=== PATIENT | female | born 1985 | race Caucasian/White ===

== ENCOUNTER 2020-08-14 08:58 | Observation (INO) | payer BC, OTHER ==
[2020-08-14] MEDS: Lactated Ringers 1,000 ML IV SCH (09:45)
--- NOTE | 2020-08-14 10:41 | US ---
HISTORY: Vaginal bleeding in . TECHNIQUE: Transabdominal obstetric ultrasound. COMPARISON: None available. FINDINGS: Single intrauterine gestation. Breech position. cardiac activity is present with heart rate 143 beats per minute. Placenta is posterior. Placenta is unremarkable. Internal cervical os appears open with fluid in the cervical canal. The following biometric measurements were obtained. Biparietal diameter: 5.4 cm, 22 weeks 4 days. Head circumference: 20.4 cm, 22 weeks 4 days. Abdominal circumference: 16.9 cm, 22 weeks 0 days. Femur length: 3.8 cm, 22 weeks 1 day. Estimated gestational age by ultrasound is 22 weeks 3 days. Estimated weight is 469 g corresponding to the 31st percentile. IMPRESSION: Single live intrauterine gestation with estimated gestational age 22 weeks 3 days. Breech position. Internal cervical os appears open with fluid in the cervical canal. Dictated by Emiliano Triplett MD @ Aug 14 2020 10:26AM Signed by Dr. Emiliano Triplett @ Aug 14 2020 10:39AM
--- NOTE | 2020-08-14 10:47 | PCM.LDHP ---
L&D History of Present Illness - General Date of Service: 08/14/20 Admit Problem/Dx: Patient Status Order with Admit Dx/Problem 08/14/20 09:26 Patient Status [ADT] Routine Admission Diagnosis/Problem Admission Diagnosis/Problem 08/14/20 10:42 Nestor is a 35 yo 020 at 22+1 weeks gestation (JOE(LMP) 12/17/2020) that presents via ambulance today for heavy vaginal bleeding that started today at 0800. Patient reports +FM. Denies pain, contractions, or LOF. AB neg, Ab screen neg, RI, GBS positive bacteriuria. RhoGam administered 05/27/2020 for vaginal bleeding in early . H/O: CHTN well managed with PO medications, GBS pos bacteriuria, maternal Rh neg, Vitamin D deficiency, h/o re current miscarriage. NDKA. Meds: Progesterone 100 mg PO BID, aspirin 81 mg PO daily, Forte, labetolol 400 mg PO BID. Anatomy US completed 07/29/2020: 20+7 weeks gestation, posterior placenta, no previa, grade 1, TVUS noted CL 3.4cm, 3VC, 4CH, EFW 320 grams (0 lbs and 11 oz), 48th%, normal anatomy. 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 General: Reports: No Symptoms HEENT: Reports: No Symptoms Pulmonary: Reports: No Symptoms Cardiovascular: Reports: No Symptoms Gastrointestinal: Reports: No Symptoms Genitourinary: Reports: No Symptoms Musculoskeletal: Reports: No Symptoms Skin: Reports: No Symptoms Psychiatric: Reports: No Symptoms Neurological: Reports: No Symptoms Hematologic/Lymphatic: Reports: No Symptoms Immunologic: Reports: No Symptoms L&D Exam - Exam Exam: See Below - Vital Signs Vital Signs: VSS, afebrile. See flowsheet. - OB Specific Fundal Height In cm: 21 (U+1) Contraction Intensity: Irritability Movement: Active Heart Tones: Present Heart Tones per Min: 155 Heart Rate (FHR) Variability: Minimal (0-5 bpm) Presentation: Breech (via TAUS) - Exam General: Alert, Oriented, Cooperative, Mild Distress HEENT: Conjunctiva Clear, EACs Clear, Hearing Intact, Mucosa Moist & [place], PERRLA Neck: Supple, Trachea Midline Lungs: Clear to Auscultation, Normal Respiratory Effort Cardiovascular: Regular Rate, Regular Rhythm GI/Abdominal Exam: Normal Bowel Sounds, Soft, Non-Tender, No Organomegaly, No Distention Rectal Exam: Deferred Genitourinary: Cervical dilitation (1-2 cm via sterile speculum exam performed by Dr. Holt at bedside, no bulging membranes noted.), Enlarged uterus (Gravid uterus, U+1), Vaginal bleeding (Large old blood noted dried to bilateral legs, cleaned. No active bleeding at this time.) Back Exam: Normal Inspection, Full Range of Motion Extremities: Normal Inspection, Normal Range of Motion, Non-Tender, No Pedal Edema, Normal Capillary Refill Skin: Warm, Dry, Intact Neurological: Cranial Nerves Intact, Reflexes Equal Bilateral Psychiatric: Alert, Normal Affect, Anxious - Patient Data Lab Results Last 24 hrs: Laboratory Results - last 24 hr 08/14/20 Range/Units 09:45 WBC 8.05 (4.0-11.0) K/uL RBC 4.03 L (4.30-5.90) M/uL Hgb 10.3 L (12.0-16.0) g/dL Hct 32.2 L (36.0-46.0) % MCV 79.9 L (80.0-98.0) fL MCH 25.6 L (27.0-32.0) pg MCHC 32.0 (31.0-37.0) g/dL RDW Std Deviation 37.1 (28.0-62.0) fl RDW Coeff of Guera 13 (11.0-15.0) % Plt Count 174 (150-400) K/uL MPV 12.40 H (7.40-12.00) fL Neut % (Auto) 77.2 (48.0-80.0) % Lymph % (Auto) 12.9 L (16.0-40.0) % Coleman % (Auto) 9.3 (0.0-15.0) % Eos % (Auto) 0.5 (0.0-7.0) % Baso % (Auto) 0.1 (0.0-1.5) % Neut # (Auto) 6.2 H (1.4-5.7) K/uL Lymph # (Auto) 1.0 (0.6-2.4) K/uL Coleman # (Auto) 0.8 (0.0-0.8) K/uL Eos # (Auto) 0.0 (0.0-0.7) K/uL Baso # (Auto) 0.0 (0.0-0.1) K/uL Nucleated RBC % 0.0 /100WBC Nucleated RBCs # 0 K/uL Result Diagrams: 08/14/20 09:45 - Problem List (1) Vaginal bleeding during SNOMED Code(s): 97220501984946362 ICD Code: O46.90 - ANTEPARTUM HEMORRHAGE, UNSPECIFIED, UNSPECIFIED TRIMESTER Status: Acute Priority: High Current Visit: Yes (2) Rh negative status during SNOMED Code(s): 778769333 ICD Code: O26.899 - OTH RELATED CONDITIONS, UNSPECIFIED TRIMESTER; Z67.91 - UNSPECIFIED BLOOD TYPE, RH NEGATIVE Status: Acute Priority: High Current Visit: Yes (3) GBS bacteriuria SNOMED Code(s): 48364055 ICD Code: R82.71 - BACTERIURIA Status: Acute Priority: High Current Visit: Yes (4) Chronic hypertension affecting SNOMED Code(s): 56095030 ICD Code: O10.919 - UNSP PRE-EXISTING HTN COMP , UNSP TRIMESTER Status: Acute Priority: High Current Visit: Yes (5) 22 weeks gestation of SNOMED Code(s): 05864121 ICD Code: Z3A.22 - 22 WEEKS GESTATION OF Status: Acute Priority: High Current Visit: Yes Problem List Initiated/Reviewed/Updated: Yes Orders Last 24hrs: Active Orders 24 hr Category Date Time Status Patient Status [ADT] Routine ADT 08/14/20 09:26 Active Non Stress Test [RC] PER UNIT ROUTINE Care 08/14/20 09:26 Active Up ad Alissa [RC] ASDIRECTED Care 08/14/20 09:26 Active Vaginal Exam [RC] Click to Edit Care 08/14/20 09:26 Active Vital Signs [RC] PER UNIT ROUTINE Care 08/14/20 09:26 Active CORONAVIRUS COVID-19 FRANCHESKA [MOLEC] Stat Lab 08/14/20 09:40 Received Resuscitation Status Routine Resus Stat 08/14/20 09:26 Ordered Assessment/Plan Comment:: Admit into inpatient observation for albaro vaginal bleeding at 22+1 weeks gestation (JOE(LMP) 12/17/2020) that presents via ambulance today that started today at 0800. AB neg, Ab screen neg, RI, GBS positive bacteriuria. TAUS completed at bedside today: 22+3 weeks gestation, breech, FHR 143, placenta posterior, no previa, unremarkable and no abruption or abnormalities noted at this time. NEHA 12.71, SDP 5.4. Internal cervical os appears open with fluid in cervical canal, CL not collected, footling breech appears to be present into cervical canal via TAUS. EFW 469 grams, 31st%ile. Speculum exam and gentle SVE completed by Dr. Holt at bedside: cervix appears 1-2 cm in dilation, thick, no membranes protruding from external os, parts not palpated; no albaro bleeding or LOF noted at that time. Collect Amnisure now, results pending. RhoGam administered 05/27/2020 for vaginal bleeding in early ; plan for repeat RhoGam administration in am with lab collection at that time. CHTN well managed with PO medications, plan to continue labetolol 400 mg BID. GBS pos b acteriuria, : plan for antibiotic prophylaxis today per Dr. Holt. Plan to reassess CBC, CMP, RhIg with subsequent RhoGam injection in am. Plan to repeat TAUS in am with TVUS for cervical length in am given patient continue to have ceased vaginal bleeding and no LOF. Will observe overnight and reassess situation tomorrow given patient remains stable. Bedrest with bed-florentino voiding, do not ambulate. FHTs q 12 hrs or as indicated. Continuous TOCO. See new orders. Dr. Holt agreeable with POC.
[2020-08-14] MEDS ORDERED: Ampicillin 2 GM in Sodium Chloride 0.9% 100 ML IV ONE (11:49)
[2020-08-14 11:51] LABS: BLOOD UREA NITROGEN,BUN 5 mg/dL (7.0-18.0); CARBON DIOXIDE,CO2 22.8 mmol/L (21.0-32.0); CHLORIDE,CL 104 mmol/L (98-107); GLUCOSE RANDOM 76 mg/dL (74-106); SODIUM,NA 138 mmol/L (136-145)
[2020-08-14] MEDS ORDERED: Sodium Chloride 0.9% 100 ML ONE (12:29)
[2020-08-14] MEDS: Labetalol 100 MG Tab PO SCH ×2 (12:34→20:30)
[2020-08-14] MEDS: Prenatal Multivitamin with Calcium/Folic Acid/Iron Tab PO SCH (12:37)
[2020-08-14] MEDS: Ampicillin 1 GM in Sodium Chloride 0.9% 50 ML IV SCH ×2 (16:28→20:31)
[2020-08-15] MEDS: Ampicillin 1 GM in Sodium Chloride 0.9% 50 ML IV SCH ×5 (00:20→21:30)
[2020-08-15 05:55] LABS: BLOOD UREA NITROGEN,BUN 6 mg/dL (7.0-18.0); CARBON DIOXIDE,CO2 21.4 mmol/L (21.0-32.0); CHLORIDE,CL 104 mmol/L (98-107); GLUCOSE RANDOM 74 mg/dL (74-106); POTASSIUM,K 3.7 mmol/L (3.5-5.1); SODIUM,NA 138 mmol/L (136-145)
--- NOTE | 2020-08-15 07:12 | PCM.PNLD ---
Labor Progress Note - VS & Meds Vital Signs: Last Vital Signs Temp Pulse 84 08/14/20 20:30 Resp BP 138/84 08/14/20 20:30 Pulse Ox Active Medications: Current Medications Ampicillin Sodium 1 gm/ Sodium (Chloride) 50 mls @ 100 mls/hr IV Q4H [facility] Last Admin: 08/15/20 04:15 Dose: 100 mls/hr Documented by: Lactated Ringer's (Ringers, Lactated) 1,000 mls @ 150 mls/hr IV ASDIRECTED [facility] Last Admin: 08/14/20 09:45 Dose: 150 mls/hr Documented by: Labetalol HCl (Labetalol 100 Mg Tab) 400 mg PO BID [facility] Last Admin: 08/14/20 20:30 Dose: 400 mg Documented by: Prenat Multivit/Pleak/Iron/Folic Ac ( Multivitamin With Calcium/Folic Acid/Iron Tab) 1 each PO DAILY [facility] Last Admin: 08/14/20 12:37 Dose: 1 each Documented by: Discontinued Medications Ampicillin Sodium 2 gm/ Sodium (Chloride) 100 mls @ 200 mls/hr IV ONETIME ONE Stop: 08/14/20 12:18 Last Admin: 08/14/20 12:38 Dose: 200 mls/hr Documented by: Sodium Chloride (Normal Saline) Confirm Administered Dose 100 mls @ as directed .ROUTE .STK-MED ONE Stop: 08/14/20 12:30 - Uterine Contractions Uterine Monitoring Mode: External [place] Contraction Frequency (min): Rare Contraction Duration (sec): 40-60 Contraction Intensity: Irritability Uterine Resting Tone: Soft - Monitoring Monitor Mode: External Ultrasound Heart Rate (FHR) Baseline: 150 (FHTs collected q shift.) Heart Rate (FHR) Variability: Minimal (0-5 bpm) - Labor Progress (Free Text) Labor Progress: Nestor is a 35 yo 020 at 22+2 weeks gestation (JOE(LMP) 12/17/2020) that presents via ambulance 1 day ago for heavy vaginal bleeding that started ~ 24 hrs ago. Patient reports +FM. Denies pain, contractions, persistent vaginal bleeding, or LOF. AB neg, Ab screen neg, RI, GBS positive bacteriuria. TAUS completed at bedside 08/14/2020: 22+3 weeks gestation, breech, FHR 143, placenta posterior, no previa, unremarkable and no abruption or abnormalities noted at this time. NEHA 12.71, SDP 5.4. Internal cervical os appears open with fluid in cervical canal, CL not collected, footling breech appears to be present into cervical canal via TAUS. EFW 469 grams, 31st%ile. Speculum exam and gentle SVE completed by Dr. Holt at bedside 08/15/2020: cervix appears 1-2 cm in dilation, thick, no membranes protruding from external os, parts not palpated; no albaro bleeding or LOF noted at that time. RhoGam administered 05/27/2020 for vaginal bleeding in early ; repeat RhoGam administration pending. GBS pos bacteriuria, Amnisure positive 08/14/2020, PPROM: continue ampicillin prophylaxis administered q 4 hrs since 1 day ago. CHTN well managed with PO medications, plan to continue labetolol 400 mg BID. Plan to repeat TAUS in am with TVUS for cervical length in am given patient continue to have ceased vaginal bleeding and no LOF. Will observe overnight and reassess situation today given patient remains stable. Bedrest with bed-florentino voiding, do not ambulate. FHTs q 12 hrs or as indicated. Continuous TOCO. See new orders. Dr. Holt agreeable with POC, and will present today at bedside to assess patient.
--- NOTE | 2020-08-15 08:18 | CONS ---
DATE OF CONSULTATION: 08/14/2020 DATE OF : 1985 PRIMARY CARE PHYSICIAN: None PCP HISTORY OF PRESENT ILLNESS: Ms. Baez is a 35-year-old patient. She is para 0-0-3-0. She had 3 previous miscarriages, all of them under 12 weeks. She started her care with us in this when she was 9 to 10 weeks. The patient has chronic hypertension. She is on labetalol and she is a high-risk . Other than the poor obstetric history and her blood pressure, there is no other risk factor. The patient had anatomy ultrasound in the office at 21 weeks, at that time it shows that the anatomy is normal. The placenta is posterior. No previa. Cervical length is 4.5 cm. The patient came to Labor and Delivery today, is complaining that at 8 o'clock this morning, she started sudden onset of vaginal bleeding with blood running on her leg. There is mild cramping, but no actual contraction. At the time of arrival to the Labor and Delivery, she stopped bleeding. There was no active bleeding. Her vital signs were stable. heart rate is normal in the 135 to 140. The abdomen is soft. There was no palpable contraction. The patient had repeat ultrasound, which confirmed that she is 22 weeks plus 3. The placenta is posterior. There is no evidence of abruption. She is breech presentation. The internal os appears open with fluid funneling in the cervical canal. Otherwise, the ultrasound and the measurement is unremarkable. Speculum examination shows no active bleeding, and visually the external cervical os may be open to 1 cm and is still thick. There is no bulging bag of fluid. Gentle digital examination confirmed that the patient maybe 1 cm. The cervix sticks and there is no palpable amniotic membrane in the cervical canal. PLAN: My plan on this patient and I discussed it with her and her family in detail. I am admitting her to the hospital under observation. We are planning to repeat her ultrasound tomorrow to confirm there is no abruption in the placenta. The ultrasound shows that estimated weight is 409 g. I also explained to the patient and her family that the survivability of the fetus at this gestational age with this weight is very, very precarious and it is not good. However, our plan is to place the patient on observation, repeat her ultrasound, repeat her hematocrit, and do an AmniSure. If it is all negative and she stops bleeding, and on tomorrow's ultrasound, there is no abruption, there is the possibility of doing Chin cerclage on this patient most likely is on Saturday. I explained this to the patient in detail. EDY GUADALUPE /[id number]
[2020-08-15] MEDS: Prenatal Multivitamin with Calcium/Folic Acid/Iron Tab PO SCH (09:02)
[2020-08-15] MEDS: Labetalol 100 MG Tab PO SCH ×2 (09:03→21:00)
--- NOTE | 2020-08-15 09:58 | US ---
CLINICAL HISTORY: Vaginal bleeding recheck Comparison ultrasound 08/14/2020 TECHNIQUE: Real time eng scale imaging of the fetus was performed as well as color Doppler and spectral Doppler analysis of the umbilical artery. FINDINGS: Single live intrauterine gestation. presentation is breech. Placenta posterior. No perigestational hemorrhage seen. Positive cardiac activity measures 143 beats per minute. NEHA measures 11.5 cm. Previous NEHA measured 12.7 cm. Cervix is open with fluid IMPRESSION: 1. Fairly similar findings again demonstrating single live intrauterine gestation in breech presentation. Internal os open with fluid in the cervical canal. NEHA is unchanged measuring 11.5 cm. Dictated by Martha Cornell MD @ Aug 15 2020 9:53AM Signed by Dr. Martha Cornell @ Aug 15 2020 9:57AM
--- NOTE | 2020-08-15 13:17 | PCM.PN ---
- General Info Date of Service: 08/15/20 Functional Status: Reports: Pain Controlled - Review of Systems General: Reports: No Symptoms HEENT: Reports: No Symptoms Pulmonary: Reports: No Symptoms Cardiovascular: Reports: No Symptoms Gastrointestinal: Reports: No Symptoms Genitourinary: Reports: No Symptoms Musculoskeletal: Reports: No Symptoms Skin: Reports: No Symptoms Neurological: Reports: No Symptoms Psychiatric: Reports: No Symptoms - Patient Data Vitals - Most Recent: Last Vital Signs Temp Pulse 88 08/15/20 09:03 Resp BP 139/80 08/15/20 09:03 Pulse Ox Weight - Most Recent: 86.183 kg I&O - Last 24 Hours: Intake & Output 08/14/20 08/15/20 08/15/20 22:59 06:59 14:59 Output Total 800 400 300 Balance -800 -400 -300 Lab Results Last 24 Hours: Laboratory Results - last 24 hr 08/14/20 08/15/20 08/15/20 Range/Units 09:45 05:25 05:25 WBC 7.65 (4.0-11.0) K/uL RBC 3.73 L (4.30-5.90) M/uL Hgb 9.6 L (12.0-16.0) g/dL Hct 29.6 L (36.0-46.0) % MCV 79.4 L (80.0-98.0) fL MCH 25.7 L (27.0-32.0) pg MCHC 32.4 (31.0-37.0) g/dL RDW Std Deviation 36.9 (28.0-62.0) fl RDW Coeff of Guera 13 (11.0-15.0) % Plt Count 165 (150-400) K/uL Nucleated RBC % 0.0 /100WBC Nucleated RBCs # 0 K/uL Sodium 138 (136-145) mmol/L Potassium 3.7 (3.5-5.1) mmol/L Chloride 104 (98-107) mmol/L Carbon Dioxide 21.4 (21.0-32.0) mmol/L BUN 6 L (7.0-18.0) mg/dL Creatinine 0.6 (0.6-1.0) mg/dL Est Cr Clr Drug Dosing 179.75 mL/min Estimated GFR (MDRD) > 60.0 ml/min Glucose 74 (74-106) mg/dL Calcium 8.8 (8.5-10.1) mg/dL Total Bilirubin 0.4 (0.2-1.0) mg/dL AST 16 (15-37) IU/L ALT 20 (14-63) IU/L Alkaline Phosphatase 67 (46-116) U/L Total Protein 6.4 (6.4-8.2) g/dL Albumin 2.8 L (3.4-5.0) g/dL Globulin 3.6 (2.6-4.0) g/dL Albumin/Globulin Ratio 0.8 L (0.9-1.6) Blood Type AB NEGATIVE Antibody Screen NEGATIVE Screen NEGATIVE (NEGATIVE) RhIG Candidate? YES Rhogam Indicated YES Crossmatch See Detail Med Orders - Current: Current Medications Ampicillin Sodium 1 gm/ Sodium (Chloride) 50 mls @ 100 mls/hr IV Q4H [facility] Last Admin: 08/15/20 12:39 Dose: 100 mls/hr Documented by: Lactated Ringer's (Ringers, Lactated) 1,000 mls @ 150 mls/hr IV ASDIRECTED [facility] Last Admin: 08/14/20 09:45 Dose: 150 mls/hr Documented by: Labetalol HCl (Labetalol 100 Mg Tab) 400 mg PO BID [facility] Last Admin: 08/15/20 09:03 Dose: 400 mg Documented by: Prenat Multivit/Tape Stringer/Iron/Folic Ac ( Multivitamin With Calcium/Folic Acid/Iron Tab) 1 each PO DAILY [facility] Last Admin: 08/15/20 09:02 Dose: 1 each Documented by: Discontinued Medications Ampicillin Sodium 2 gm/ Sodium (Chloride) 100 mls @ 200 mls/hr IV ONETIME ONE Stop: 08/14/20 12:18 Last Admin: 08/14/20 12:38 Dose: 200 mls/hr Documented by: Sodium Chloride (Normal Saline) Confirm Administered Dose 100 mls @ as directed .ROUTE .STK-MED ONE Stop: 08/14/20 12:30 - Exam General: Alert, Oriented HEENT: Pupils Equal, Pupils Reactive, EOMI, Mucous Membr. Moist/[place] Neck: Supple Lungs: Clear to Auscultation, Normal Respiratory Effort Cardiovascular: Regular Rate, Regular Rhythm GI/Abdominal Exam: Normal Bowel Sounds, Soft, Non-Tender, No Organomegaly, No Distention, No Abnormal Bruit, No Mass, Pelvis Stable (Female) Exam: Normal External Exam, Normal Speculum Exam, Normal Bimanual Exam Back Exam: Normal Inspection, Full Range of Motion Extremities: Normal Inspection, Normal Range of Motion, Non-Tender, No Pedal Ed milka, Normal Capillary Refill Skin: Warm, Dry, Intact Wound/Incisions: Healing Well Neurological: No New Focal Deficit Psy/Mental Status: Alert, Normal Affect, Normal Mood - Patient Data Lab Results Last 24 hrs: Laboratory Results - last 24 hr 08/14/20 08/15/20 08/15/20 Range/Units 09:45 05:25 05:25 WBC 7.65 (4.0-11.0) K/uL RBC 3.73 L (4.30-5.90) M/uL Hgb 9.6 L (12.0-16.0) g/dL Hct 29.6 L (36.0-46.0) % MCV 79.4 L (80.0-98.0) fL MCH 25.7 L (27.0-32.0) pg MCHC 32.4 (31.0-37.0) g/dL RDW Std Deviation 36.9 (28.0-62.0) fl RDW Coeff of Guera 13 (11.0-15.0) % Plt Count 165 (150-400) K/uL Nucleated RBC % 0.0 /100WBC Nucleated RBCs # 0 K/uL Sodium 138 (136-145) mmol/L Potassium 3.7 (3.5-5.1) mmol/L Chloride 104 (98-107) mmol/L Carbon Dioxide 21.4 (21.0-32.0) mmol/L BUN 6 L (7.0-18.0) mg/dL Creatinine 0.6 (0.6-1.0) mg/dL Est Cr Clr Drug Dosing 179.75 mL/min Estimated GFR (MDRD) > 60.0 ml/min Glucose 74 (74-106) mg/dL Calcium 8.8 (8.5-10.1) mg/dL Total Bilirubin 0.4 (0.2-1.0) mg/dL AST 16 (15-37) IU/L ALT 20 (14-63) IU/L Alkaline Phosphatase 67 (46-116) U/L Total Protein 6.4 (6.4-8.2) g/dL Albumin 2.8 L (3.4-5.0) g/dL Globulin 3.6 (2.6-4.0) g/dL Albumin/Globulin Ratio 0.8 L (0.9-1.6) Blood Type AB NEGATIVE Antibody Screen NEGATIVE Screen NEGATIVE (NEGATIVE) RhIG Candidate? YES Rhogam Indicated YES Crossmatch See Detail Result Diagrams: 08/15/20 05:25 08/15/20 05:25 Sepsis Event Note - Evaluation Sepsis Screening Result: No Definite Risk - Focused Exam Vital Signs: Vital Signs Pulse BP 08/15/20 09:03 88 139/80 - Problem List Review Problem List Initiated/Reviewed/Updated: Yes - My Orders Last 24 Hours: My Active Orders 08/14/20 14:23 SCD [Sequential Compression Device] [OM.PC] Routine 08/14/20 14:24 Antiembolic Devices [RC] PER UNIT ROUTINE 08/14/20 15:45 Lactated Ringers [Ringers, Lactated] 1,000 ml IV ASDIRECTED 08/16/20 06:00 CBC WITH AUTO DIFF [HEME] Routine 08/16/20 08:00 OB Transvaginal [US] Routine - Assessment Assessment:: The patient stop having contraction and cramping she stop bleeding OB ultrasound today is shows that the amniotic fluid index is to same and there is stool funneling of the cervical canal with amniotic fluid in it but did not progress beyond what start ultrasound from yesterday by ultrasound the patient is still have an intact amniotic sac it is most likely that AmniSure positive yesterday is due to contamination with blood. I am planning to repeat her ultrasound tomorrow for amniotic fluid index and to make sure definitely that the patient does not have any abruption I am also doing a vaginal probe more to measure her cervical length. My plan if there is no change in her status then I am planning to do a Chin cerclage on the patient tomorrow at noon. I discussed the finding today and my plan with the patient and her and explained to them that in detail what the Chin cerclage and there is the possibility of rupturing her membranes during the process. Also explained to the patient and her is if she'll go home she is will be on complete bedrest. I also explained to them that we will are going to assess the on weekly basis we can by 4-5 weeks with a cerclage disease wouldn't improve the odds for the survival for the fetus. The patient and her agreed to this plan. - Plan Plan:: Admit into inpatient observation for albaro vaginal bleeding at 22+1 weeks gestation (JOE(LMP) 12/17/2020) that presents via ambulance today that started today at 0800. AB neg, Ab screen neg, RI, GBS positive bacteriuria. TAUS completed at bedside today: 22+3 weeks gestation, breech, FHR 143, placenta posterior, no previa, unremarkable and no abruption or abnormalities noted at this time. NEHA 12.71, SDP 5.4. Internal cervical os appears open with fluid in cervical canal, CL not collected, footling breech appears to be present into cervical canal via TAUS. EFW 469 grams, 31st%ile. Speculum exam and gentle SVE completed by Dr. Holt at bedside: cervix appears 1-2 cm in dilation, thick, no membranes protruding from external os, parts not palpated; no albaro bleeding or LOF noted at that time. Collect Amnisure now, results pending. RhoGam administered 05/27/2020 for vaginal bleeding in early ; plan for repeat RhoGam administration in am with lab collection at that time. CHTN well managed with PO medications, plan to continue labetolol 400 mg BID. GBS pos bacteriuria, : plan for antibiotic prophylaxis today per Dr. Holt. Plan to reassess CBC, CMP, RhIg with subsequent RhoGam injection in am. Plan to repeat TAUS in am with TVUS for cervical length in am given patient continue to have ceased vaginal bleeding and no LOF. Will observe overnight and reassess situation tomorrow given patient remains stable. Bedrest with bed-florentino voiding, do not ambulate. FHTs q 12 hrs or as indicated. Continuous TOCO. See new orders. Dr. Holt agreeable with POC.
[2020-08-16] MEDS: Ampicillin 1 GM in Sodium Chloride 0.9% 50 ML IV SCH ×3 (00:23→11:42)
[2020-08-16] MEDS ORDERED: Ampicillin 1 GM Vial ONE ×5 (04:32→20:04)
[2020-08-16] MEDS ORDERED: Sodium Chloride 0.9% 50 ML ONE ×3 (08:03→16:03)
[2020-08-16] MEDS ORDERED: Labetalol 100 MG Tab ONE ×2 (09:08→20:05)
--- NOTE | 2020-08-16 09:17 | US ---
INDICATION: Second trimester bleeding. TECHNIQUE: 2D eng scale imaging of the fetus was performed. FINDINGS: Sonographic imaging demonstrates a single living intrauterine gestation. Fetus demonstrates a regular cardiac rate of 147 beats per minute. Fetus has a breech presentation. The placenta lies posteriorly without evidence of placenta previa or abruption. Amniotic fluid volume appears normal with a 4 quadrant fluid volume index measurement of 12.1 cm. The cervix is closed and measures 1.8 cm in length. IMPRESSION: No evidence of abruption within the posterior placenta. The amniotic fluid volume remains normal. Cervix appears shortened measuring 1.8 cm in length. Dictated by Jose Chen MD @ Aug 16 2020 9:01AM Signed by Dr. Jose Chen @ Aug 16 2020 9:14AM
--- NOTE | 2020-08-16 09:37 | PCM.PREANE ---
Preanesthetic Assessment - Anesthesia/Transfusion/Family Hx Anesthesia History: No Prior Anesthesia Family History of Anesthesia Reaction: No Transfusion History: No Prior Transfusion(s) - Review of Systems General: No Symptoms Pulmonary: No Symptoms Cardiovascular: Other (Hx Chronic Hypertension) Gastrointestinal: No Symptoms Neurological: No Symptoms Other: Reports: None - Physical Assessment NPO Status Date: 08/16/20 NPO Status Time: 00:05 Vital Signs: Last Vital Signs Temp Pulse 84 08/16/20 09:11 Resp BP 135/85 08/16/20 09:11 Pulse Ox Height: 4.19 m Weight: 86.183 kg ASA Class: 2 Mental Status: Alert & Oriented x3 Dentition: Reports: Normal Dentition ROM/Head Extension: Full - Lab Values: Laboratory Last Values WBC 6.90 K/uL (4.0-11.0) 08/16/20 06:08 RBC 3.83 M/uL (4.30-5.90) L 08/16/20 06:08 Hgb 9.9 g/dL (12.0-16.0) L 08/16/20 06:08 Hct 30.4 % (36.0-46.0) L 08/16/20 06:08 MCV 79.4 fL (80.0-98.0) L 08/16/20 06:08 MCH 25.8 pg (27.0-32.0) L 08/16/20 06:08 MCHC 32.6 g/dL (31.0-37.0) 08/16/20 06:08 RDW Std Deviation 36.5 fl (28.0-62.0) 08/16/20 06:08 RDW Coeff of Guera 13 % (11.0-15.0) 08/16/20 06:08 Plt Count 165 K/uL (150-400) 08/16/20 06:08 MPV 12.30 fL (7.40-12.00) H 08/16/20 06:08 Neut % (Auto) 73.7 % (48.0-80.0) 08/16/20 06:08 Lymph % (Auto) 16.7 % (16.0-40.0) 08/16/20 06:08 Johnson % (Auto) 8.8 % (0.0-15.0) 08/16/20 06:08 Eos % (Auto) 0.7 % (0.0-7.0) 08/16/20 06:08 Baso % (Auto) 0.1 % (0.0-1.5) 08/16/20 06:08 Neut # (Auto) 5.1 K/uL (1.4-5.7) 08/16/20 06:08 Lymph # (Auto) 1.2 K/uL (0.6-2.4) 08/16/20 06:08 Johnson # (Auto) 0.6 K/uL (0.0-0.8) 08/16/20 06:08 Eos # (Auto) 0.1 K/uL (0.0-0.7) 08/16/20 06:08 Baso # (Auto) 0.0 K/uL (0.0-0.1) 08/16/20 06:08 Nucleated RBC % 0.0 /100WBC 08/16/20 06:08 Nucleated RBCs # 0 K/uL 08/16/20 06:08 Sodium 138 mmol/L (136-145) 08/15/20 05:25 Potassium 3.7 mmol/L (3.5-5.1) 08/15/20 05:25 Chloride 104 mmol/L (98-107) 08/15/20 05:25 Carbon Dioxide 21.4 mmol/L (21.0-32.0) 08/15/20 05:25 BUN 6 mg/dL (7.0-18.0) L 08/15/20 05:25 Creatinine 0.6 mg/dL (0.6-1.0) 08/15/20 05:25 Est Cr Clr Drug Dosing 179.75 mL/min 08/15/20 05:25 Estimated GFR (MDRD) > 60.0 ml/min 08/15/20 05:25 Glucose 74 mg/dL (74-106) 08/15/20 05:25 Calcium 8.8 mg/dL (8.5-10.1) 08/15/20 05:25 Total Bilirubin 0.4 mg/dL (0.2-1.0) 08/15/20 05:25 AST 16 IU/L (15-37) 08/15/20 05:25 ALT 20 IU/L (14-63) 08/15/20 05:25 Alkaline Phosphatase 67 U/L (46-116) 08/15/20 05:25 Total Protein 6.4 g/dL (6.4-8.2) 08/15/20 05:25 Albumin 2.8 g/dL (3.4-5.0) L 08/15/20 05:25 Globulin 3.6 g/dL (2.6-4.0) 08/15/20 05:25 Albumin/Globulin Ratio 0.8 (0.9-1.6) L 08/15/20 05:25 Membrane Rupture POSITIVE 08/14/20 10:57 SARS-CoV-2 RNA (FRANCHESKA) NEGATIVE (NEGATIVE) 08/14/20 09:40 Blood Type AB NEGATIVE 08/14/20 09:45 Antibody Screen NEGATIVE 08/14/20 09:45 Screen NEGATIVE (NEGATIVE) 08/14/20 09:45 RhIG Candidate? YES 08/14/20 09:45 Rhogam Indicated YES 08/14/20 09:45 Crossmatch See Detail 08/14/20 09:45 - Allergies Allergies/Adverse Reactions: Allergies Allergy/AdvReac Type Severity Reaction Status Date / Time No Known Allergies Allergy Verified 08/14/20 12:00 - Anesthesia Plan Beta Shaggy: Labetalol Med Last Dose Date: 08/16/20 Med Last Dose Time: 08:00 - Acknowledgements Anesthesia Type Planned: Spinal Pt an Appropriate Candidate for the Planned Anesthesia: Yes Alternatives and Risks of Anesthesia Discussed w Pt/Guardian: Yes Pt/Guardian Understands and Agrees with Anesthesia Plan: Yes PreAnesthesia Questionnaire - Past Health History Medical/Surgical History: Denies Medical/Surgical History Cardiovascular History: Reports: Hypertension 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 Hematologic History: Reports: Other (See Below) - Past Surgical History Cardiovascular Surgical History: Reports: None Respiratory Surgical History: Reports: None - SUBSTANCE USE Tobacco Use Status *Q: Never Tobacco User Tobacco Use Within Last Twelve Months: No Second Hand Smoke Exposure: No Recreational Drug Use History: No - HOME MEDS Home Medications: Home Meds Aspirin [Izaiah Chewable] 81 mg PO DAILY 08/14/20 [History] Labetalol [Normodyne] 400 mg PO BID 08/14/20 [History] Vit #76/Iron,Carb/Fa [Pnv 29-1 Tablet] 1 each PO DAILY 08/14/20 [History] - CURRENT (IN HOUSE) MEDS Current Meds: Current Medications Ampicillin Sodium 1 gm/ Sodium (Chloride) 50 mls @ 100 mls/hr IV Q4H [facility] Last Admin: 08/16/20 04:48 Dose: 100 mls/hr Documented by: Lactated Ringer's (Ringers, Lactated) 1,000 mls @ 150 mls/hr IV ASDIRECTED [facility] Last Admin: 08/14/20 09:45 Dose: 150 mls/hr Documented by: Labetalol HCl (Labetalol 100 Mg Tab) 400 mg PO BID [facility] Last Admin: 08/15/20 21:00 Dose: 400 mg Documented by: Prenat Multivit/[place]/Iron/Folic Ac ( Multivitamin With Calcium/Folic Acid/Iron Tab) 1 each PO DAILY [facility] Last Admin: 08/15/20 09:02 Dose: 1 each Documented by: Discontinued Medications Ampicillin Sodium (Ampicillin 1 Gm Vial) Confirm Administered Dose 1 gm .ROUTE .STK-MED ONE Stop: 08/16/20 04:33 Ampicillin Sodium (Ampicillin 1 Gm Vial) Confirm Administered Dose 1 gm .ROUTE .STK-MED ONE Stop: 08/16/20 08:02 Last Admin: 08/16/20 08:24 Dose: 1 gm Documented by: Ampicillin Sodium 2 gm/ Sodium (Chloride) 100 mls @ 200 mls/hr IV ONETIME ONE Stop: 08/14/20 12:18 Last Admin: 08/14/20 12:38 Dose: 200 mls/hr Documented by: Sodium Chloride (Normal Saline) Confirm Administered Dose 100 mls @ as directed .ROUTE .STK-MED ONE Stop: 08/14/20 12:30 Sodium Chloride (Normal Saline) Confirm Administered Dose 50 mls @ as directed .ROUTE .STK-MED ONE Stop: 08/16/20 08:04 Last Admin: 08/16/20 08:25 Dose: 100 mls/hr Documented by: Labetalol HCl (Labetalol 100 Mg Tab) Confirm Administered Dose 400 mg .ROUTE .STK-MED ONE Stop: 08/16/20 09:09 Last Admin: 08/16/20 09:11 Dose: 400 mg Documented by:
[2020-08-16] MEDS ORDERED: Chloroprocaine 10 MG/ML 5 ML Amp ONE (09:40)
[2020-08-16] MEDS: Lactated Ringers 1,000 ML IV SCH (11:41)
--- NOTE | 2020-08-16 13:32 | PCM.POSTAN ---
POST ANESTHESIA ASSESSMENT - MENTAL STATUS Mental Status: Alert - VITAL SIGNS Vital Signs: Last Vital Signs Temp Pulse 84 08/16/20 09:11 Resp BP 135/85 08/16/20 09:11 Pulse Ox - RESPIRATORY Respiratory Status: Respiratory Rate WNL - CARDIOVASCULAR CV Status: Pulse Rate WNL - GASTROINTESTINAL GI Status: No Symptoms - PAIN Pain Score: 0 (SAB regressing.) - POST OP HYDRATION Hydration Status: Adequate & Stable - OBSERVATIONS Free Text/Narrative:: Doing well.
--- NOTE | 2020-08-16 13:54 | PCM.PN ---
- General Info Date of Service: 08/16/20 Functional Status: Reports: Pain Controlled - Review of Systems General: Reports: No Symptoms HEENT: Reports: No Symptoms Pulmonary: Reports: No Symptoms Cardiovascular: Reports: No Symptoms Gastrointestinal: Reports: No Symptoms Genitourinary: Reports: No Symptoms Musculoskeletal: Reports: No Symptoms Skin: Reports: No Symptoms Neurological: Reports: No Symptoms Psychiatric: Reports: No Symptoms - Patient Data Vitals - Most Recent: Last Vital Signs Temp Pulse 84 08/16/20 09:11 Resp BP 135/85 08/16/20 09:11 Pulse Ox Weight - Most Recent: 86.183 kg I&O - Last 24 Hours: Intake & Output 08/15/20 08/16/20 08/16/20 22:59 06:59 14:59 Output Total 1900 300 300 Balance -1900 -300 -300 Lab Results Last 24 Hours: Laboratory Results - last 24 hr 08/14/20 08/16/20 Range/Units 09:45 06:08 WBC 6.90 (4.0-11.0) K/uL RBC 3.83 L (4.30-5.90) M/uL Hgb 9.9 L (12.0-16.0) g/dL Hct 30.4 L (36.0-46.0) % MCV 79.4 L (80.0-98.0) fL MCH 25.8 L (27.0-32.0) pg MCHC 32.6 (31.0-37.0) g/dL RDW Std Deviation 36.5 (28.0-62.0) fl RDW Coeff of Guera 13 (11.0-15.0) % Plt Count 165 (150-400) K/uL MPV 12.30 H (7.40-12.00) fL Neut % (Auto) 73.7 (48.0-80.0) % Lymph % (Auto) 16.7 (16.0-40.0) % [place] % (Auto) 8.8 (0.0-15.0) % Eos % (Auto) 0.7 (0.0-7.0) % Baso % (Auto) 0.1 (0.0-1.5) % Neut # (Auto) 5.1 (1.4-5.7) K/uL Lymph # (Auto) 1.2 (0.6-2.4) K/uL [place] # (Auto) 0.6 (0.0-0.8) K/uL Eos # (Auto) 0.1 (0.0-0.7) K/uL Baso # (Auto) 0.0 (0.0-0.1) K/uL Nucleated RBC % 0.0 /100WBC Nucleated RBCs # 0 K/uL Blood Type AB NEGATIVE Antibody Screen NEGATIVE Screen NEGATIVE (NEGATIVE) RhIG Candidate? YES Rhogam Indicated YES Crossmatch See Detail Med Orders - Current: Current Medications Ampicillin Sodium 1 gm/ Sodium (Chloride) 50 mls @ 100 mls/hr IV Q4H [facility] Last Admin: 08/16/20 11:42 Dose: 100 mls/hr Documented by: Lactated Ringer's (Ringers, Lactated) 1,000 mls @ 150 mls/hr IV ASDIRECTED [facility] Last Admin: 08/16/20 11:41 Dose: 999 mls/hr Documented by: Labetalol HCl (Labetalol 100 Mg Tab) 400 mg PO BID [facility] Last Admin: 08/15/20 21:00 Dose: 400 mg Documented by: Prenat Multivit/[place]/Iron/Folic Ac ( Multivitamin With Calcium/Folic A chriss/Iron Tab) 1 each PO DAILY [facility] Last Admin: 08/15/20 09:02 Dose: 1 each Documented by: Discontinued Medications Ampicillin Sodium (Ampicillin 1 Gm Vial) Confirm Administered Dose 1 gm .ROUTE .STK-MED ONE Stop: 08/16/20 04:33 Ampicillin Sodium (Ampicillin 1 Gm Vial) Confirm Administered Dose 1 gm .ROUTE .STK-MED ONE Stop: 08/16/20 08:02 Last Admin: 08/16/20 08:24 Dose: 1 gm Documented by: Ampicillin Sodium (Ampicillin 1 Gm Vial) Confirm Administered Dose 1 gm .ROUTE .STK-MED ONE Stop: 08/16/20 11:20 Chloroprocaine HCl (Chloroprocaine 10 Mg/Ml 5 Ml Amp) Confirm Administered Dose 5 ml .ROUTE .STK-MED ONE Stop: 08/16/20 09:41 Ampicillin Sodium 2 gm/ Sodium (Chloride) 100 mls @ 200 mls/hr IV ONETIME ONE Stop: 08/14/20 12:18 Last Admin: 08/14/20 12:38 Dose: 200 mls/hr Documented by: Sodium Chloride (Normal Saline) Confirm Administered Dose 100 mls @ as directed .ROUTE .STK-MED ONE Stop: 08/14/20 12:30 Sodium Chloride (Normal Saline) Confirm Administered Dose 50 mls @ as directed .ROUTE .STK-MED ONE Stop: 08/16/20 08:04 Last Admin: 08/16/20 08:25 Dose: 100 mls/hr Documented by: Sodium Chloride (Normal Saline) Confirm Administered Dose 50 mls @ as directed .ROUTE .STK-MED ONE Stop: 08/16/20 11:20 Labetalol HCl (Labetalol 100 Mg Tab) Confirm Administered Dose 400 mg .ROUTE .STK-MED ONE Stop: 08/16/20 09:09 Last Admin: 08/16/20 09:11 Dose: 400 mg Documented by: - Exam General: Alert, Oriented HEENT: Pupils Equal, Pupils Reactive, EOMI, Mucous Membr. Moist/[place] Neck: Supple Lungs: Clear to Auscultation, Normal Respiratory Effort Cardiovascular: Regular Rate, Regular Rhythm GI/Abdominal Exam: Normal Bowel Sounds, Soft, Non-Tender, No Organomegaly, No Distention, No Abnormal Bruit, No Mass, Pelvis Stable (Female) Exam: Normal External Exam, Normal Speculum Exam, Normal Bimanual Exam Back Exam: Normal Inspection, Full Range of Motion Extremities: Normal Inspection, Normal Range of Motion, Non-Tender, No Pedal Edema, Normal Capillary Refill Skin: Warm, Dry, Intact Wound/Incisions: Healing Well Neurological: No New Focal Deficit Psy/Mental Status: Alert, Normal Affect, Normal Mood - Patient Data Lab Results Last 24 hrs: Laboratory Results - last 24 hr 08/14/20 08/16/20 Range/Units 09:45 06:08 WBC 6.90 (4.0-11.0) K/uL RBC 3.83 L (4.30-5.90) M/uL Hgb 9.9 L (12.0-16.0) g/dL Hct 30.4 L (36.0-46.0) % MCV 79.4 L (80.0-98.0) fL MCH 25.8 L (27.0-32.0) pg MCHC 32.6 (31.0-37.0) g/dL RDW Std Deviation 36.5 (28.0-62.0) fl RDW Coeff of Guera 13 (11.0-15.0) % Plt Count 165 (150-400) K/uL MPV 12.30 H (7.40-12.00) fL Neut % (Auto) 73.7 (48.0-80.0) % Lymph % (Auto) 16.7 (16.0-40.0) % [place] % (Auto) 8.8 (0.0-15.0) % Eos % (Auto) 0.7 (0.0-7.0) % Baso % (Auto) 0.1 (0.0-1.5) % Neut # (Auto) 5.1 (1.4-5.7) K/uL Lymph # (Auto) 1.2 (0.6-2.4) K/uL [place] # (Auto) 0.6 (0.0-0.8) K/uL Eos # (Auto) 0.1 (0.0-0.7) K/uL Baso # (Auto) 0.0 (0.0-0.1) K/uL Nucleated RBC % 0.0 /100WBC Nucleated RBCs # 0 K/uL Blood Type AB NEGATIVE Antibody Screen NEGATIVE Screen NEGATIVE (NEGATIVE) RhIG Candidate? YES Rhogam Indicated YES Crossmatch See Detail Result Diagrams: 08/16/20 06:08 08/15/20 05:25 Sepsis Event Note - Evaluation Sepsis Screening Result: No Definite Risk - Focused Exam Vital Signs: Vital Signs Pulse BP 08/16/20 09:11 84 135/85 - Problem List Review Problem List Initiated/Reviewed/Updated: Yes - My Orders Last 24 Hours: My Active Orders 08/16/20 01:59 Admission Status [Patient Status] [ADT] Routine 08/17/20 06:00 CBC WITH AUTO DIFF [HEME] Routine 08/17/20 08:00 OB Transvaginal [US] Routine - Assessment Assessment:: The patient stop having contraction and cramping she stop bleeding OB ultrasound today is shows that the amniotic fluid index is to same and there is stool funneling of the cervical canal with amniotic fluid in it but did not progress beyond what start ultrasound from yesterday by ultrasound the patient is still have an intact amniotic sac it is most likely that AmniSure positive yesterday is due to contamination with blood. I am planning to repeat her ultrasound to [place] for amniotic fluid index and to make sure definitely that the patient does not have any abruption I am also doing a vaginal probe more to measure her cervical length. My plan if there is no change in her status then I am planning to do a Chin cerclage on the patient tomorrow at noon. I discussed the finding today and my plan with the patient and her and explained to them that in detail what the Chin cerclage and there is the possibility of rupturing her membranes during the process. Also explained to the patient and her is if she'll go home she is will be on complete bedrest. I also explained to them that we will are going to assess the on weekly basis we can by 4-5 weeks with a cerclage disease wouldn't improve the odds for the survival for the fetus. The patient and her agreed to this plan. 08/16/20 Today the patient is afebrile her white count was normal and her ultrasound there is no change in amniotic fluid vaginal probe ultrasound shows her cervix is between 1.5-1.8 cm with bulging bag of water and the cervix. Explained these finding to the patient of her on I'm planning to move ahead today with the cerclage fully this is would be achieved without rupturing of the membrane and without any problem. Father explained to the patient the strong possibility of rupturing the membrane because is the membrane is bulging through the cervical os. - Plan Plan:: Admit into inpatient observation for albaro vaginal bleeding at 22+1 weeks gestation (JOE(LMP) 12/17/2020) that presents via ambulance today that started today at 0800. AB neg, Ab screen neg, RI, GBS positive bacteriuria. TAUS completed at bedside today: 22+3 weeks gestation, breech, FHR 143, placenta posterior, no previa, unremarkable and no abruption or abnormalities noted at this time. NEHA 12.71, SDP 5.4. Internal cervical os appears open with fluid in cervical canal, CL not collected, footling breech appears to be present into cervical canal via TAUS. EFW 469 grams, 31st%ile. Speculum exam and gentle SVE completed by Dr. Holt at bedside: cervix appears 1-2 cm in dilation, thick, no membranes protruding from external os, parts not palpated; no albaro bleeding or LOF noted at that time. Collect Amnisure now, results pending. RhoGam administered 05/27/2020 for vaginal bleeding in early ; plan for repeat RhoGam administration in am with lab collection at that time. CHTN well managed with PO medications, plan to continue labetolol 400 mg BID. GBS pos bacteriuria, : plan for antibiotic prophylaxis today per Dr. Holt. Plan to reassess CBC, CMP, RhIg with subsequent RhoGam injection in am. Plan to repeat TAUS in am with TVUS for cervical length in am given patient continue to have ceased vaginal bleeding and no LOF. Will observe overnight and reassess situation tomorrow given patient remains stable. Bedrest with bed-florentino voiding, do not ambulate. FHTs q 12 hrs or as indicated. Continuous TOCO. See new orders. Dr. Holt agreeable with POC.
[2020-08-16] MEDS: Prenatal Multivitamin with Calcium/Folic Acid/Iron Tab PO SCH (16:16)
[2020-08-16] MEDS ORDERED: Sodium Chloride 0.9% 100 ML ONE (20:05)
[2020-08-17] MEDS ORDERED: Ampicillin 1 GM Vial ONE ×2 (00:08→04:15)
[2020-08-17] MEDS ORDERED: Sodium Chloride 0.9% 50 ML ONE ×2 (00:09→04:15)
[2020-08-17] MEDS: Ampicillin 1 GM in Sodium Chloride 0.9% 50 ML IV SCH ×2 (00:15→04:22)
--- NOTE | 2020-08-17 09:16 | PCM.PN ---
- General Info Date of Service: 08/17/20 Functional Status: Reports: Pain Controlled - Review of Systems General: Reports: No Symptoms HEENT: Reports: No Symptoms Pulmonary: Reports: No Symptoms Cardiovascular: Reports: No Symptoms Gastrointestinal: Reports: No Symptoms Genitourinary: Reports: No Symptoms Musculoskeletal: Reports: No Symptoms Skin: Reports: No Symptoms Neurological: Reports: No Symptoms Psychiatric: Reports: No Symptoms - Patient Data Vitals - Most Recent: Last Vital Signs Temp Pulse 84 08/16/20 20:15 Resp BP 131/73 08/16/20 20:15 Pulse Ox Weight - Most Recent: 86.183 kg I&O - Last 24 Hours: Intake & Output 08/16/20 08/17/20 08/17/20 22:59 06:59 14:59 Output Total 1200 Balance -1200 Lab Results Last 24 Hours: Laboratory Results - last 24 hr 08/17/20 Range/Units 06:10 WBC 7.96 (4.0-11.0) K/uL RBC 3.66 L (4.30-5.90) M/uL Hgb 9.3 L (12.0-16.0) g/dL Hct 28.8 L (36.0-46.0) % MCV 78.7 L (80.0-98.0) fL MCH 25.4 L (27.0-32.0) pg MCHC 32.3 (31.0-37.0) g/dL RDW Std Deviation 35.4 (28.0-62.0) fl RDW Coeff of Guera 12 (11.0-15.0) % Plt Count 168 (150-400) K/uL MPV 12.70 H (7.40-12.00) fL Neut % (Auto) 79.6 (48.0-80.0) % Lymph % (Auto) 10.8 L (16.0-40.0) % [place] % (Auto) 8.9 (0.0-15.0) % Eos % (Auto) 0.6 (0.0-7.0) % Baso % (Auto) 0.1 (0.0-1.5) % Neut # (Auto) 6.3 H (1.4-5.7) K/uL Lymph # (Auto) 0.9 (0.6-2.4) K/uL [place] # (Auto) 0.7 (0.0-0.8) K/uL Eos # (Auto) 0.1 (0.0-0.7) K/uL Baso # (Auto) 0.0 (0.0-0.1) K/uL Nucleated RBC % 0.0 /100WBC Nucleated RBCs # 0 K/uL Med Orders - Current: Current Medications Ampicillin Sodium 1 gm/ Sodium (Chloride) 50 mls @ 100 mls/hr IV Q4H [facility] Last Admin: 08/17/20 04:22 Dose: 100 mls/hr Documented by: Lactated Ringer's (Ringers, Lactated) 1,000 mls @ 150 mls/hr IV ASDIRECTED [facility] Last Admin: 08/16/20 11:41 Dose: 999 mls/hr Documented by: Labetalol HCl (Labetalol 100 Mg Tab) 400 mg PO BID [facility] Last Admin: 08/15/20 21:00 Dose: 400 mg Documented by: Prenat Multivit/Brooks/Iron/Folic Ac ( Multivitamin With Calcium/Folic Acid/Iron Tab) 1 each PO DAILY [facility] Last Admin: 08/16/20 16:16 Dose: 1 each Documented by: Discontinued Medications Ampicillin Sodium (Ampicillin 1 Gm Vial) Confirm Administered Dose 1 gm .ROUTE .STK-MED ONE Stop: 08/16/20 04:33 Ampicillin Sodium (Ampicillin 1 Gm Vial) Confirm Administered Dose 1 gm .ROUTE .STK-MED ONE Stop: 08/16/20 08:02 Last Admin: 08/16/20 08:24 Dose: 1 gm Documented by: Ampicillin Sodium (Ampicillin 1 Gm Vial) Confirm Administered Dose 1 gm .ROUTE .STK-MED ONE Stop: 08/16/20 11:20 Ampicillin Sodium (Ampicillin 1 Gm Vial) Confirm Administered Dose 1 gm .ROUTE .STK-MED ONE Stop: 08/16/20 16:03 Last Admin: 08/16/20 16:15 Dose: 1 gm Documented by: Ampicillin Sodium (Ampicillin 1 Gm Vial) Confirm Administered Dose 1 gm .ROUTE .STK-MED ONE Stop: 08/16/20 20:05 Last Admin: 08/16/20 20:18 Dose: 1 gm Documented by: Ampicillin Sodium (Ampicillin 1 Gm Vial) Confirm Administered Dose 1 gm .ROUTE .STK-MED ONE Stop: 08/17/20 00:09 Ampicillin Sodium (Ampicillin 1 Gm Vial) Confirm Administered Dose 1 gm .ROUTE .ST-MED ONE Stop: 08/17/20 04:16 Chloroprocaine HCl (Chloroprocaine 10 Mg/Ml 5 Ml Amp) Confirm Administered Dose 5 ml .ROUTE .[facility]-MED ONE Stop: 08/16/20 09:41 Ampicillin Sodium 2 gm/ Sodium (Chloride) 100 mls @ 200 mls/hr IV ONETIME ONE Stop: 08/14/20 12:18 Last Admin: 08/14/20 12:38 Dose: 200 mls/hr Documented by: Sodium Chloride (Normal Saline) Confirm Administered Dose 100 mls @ as directed .ROUTE .[facility]-MED ONE Stop: 08/14/20 12:30 Sodium Chloride (Normal Saline) Confirm Administered Dose 50 mls @ as directed .ROUTE .[facility]-MED ONE Stop: 08/16/20 08:04 Last Admin: 08/16/20 08:25 Dose: 100 mls/hr Documented by: Sodium Chloride (Normal Saline) Confirm Administered Dose 50 mls @ as directed .ROUTE .[facility]-MED ONE Stop: 08/16/20 11:20 Sodium Chloride (Normal Saline) Confirm Administered Dose 50 mls @ as directed .ROUTE .[facility]-MED ONE Stop: 08/16/20 16:04 Last Admin: 08/16/20 16:15 Dose: 100 mls/hr Documented by: Sodium Chloride (Normal Saline) Confirm Administered Dose 100 mls @ as directed .ROUTE .[facility]-MED ONE Stop: 08/16/20 20:06 Sodium Chloride (Normal Saline) Confirm Administered Dose 50 mls @ as directed .ROUTE .[facility]-MED ONE Stop: 08/17/20 00:10 Sodium Chloride (Normal Saline) Confirm Administered Dose 50 mls @ as directed .ROUTE .[facility]-MED ONE Stop: 08/17/20 04:16 Labetalol HCl (Labetalol 100 Mg Tab) Confirm Administered Dose 400 mg .ROUTE .ST-MED ONE Stop: 08/16/20 09:09 Last Admin: 08/16/20 09:11 Dose: 400 mg Documented by: Labetalol HCl (Labetalol 100 Mg Tab) Confirm Administered Dose 400 mg .ROUTE .ST-MED ONE Stop: 08/16/20 20:06 Last Admin: 08/16/20 20:15 Dose: 400 mg Documented by: - Exam General: Alert, Oriented HEENT: Pupils Equal, Pupils Reactive, EOMI, Mucous Membr. Moist/[place] Neck: Supple Lungs: Clear to Auscultation, Normal Respiratory Effort Cardiovascular: Regular Rate, Regular Rhythm GI/Abdominal Exam: Normal Bowel Sounds, Soft, Non-Tender, No Organomegaly, No Distention, No Abnormal Bruit, No Mass, Pelvis Stable (Female) Exam: Normal External Exam, Normal Speculum Exam, Normal Bimanual Exam Back Exam: Normal Inspection, Full Range of Motion Extremities: Normal Inspection, Normal Range of Motion, Non-Tender, No Pedal Edema, Normal Capillary Refill Skin: Warm, Dry, Intact Wound/Incisions: Healing Well Neurological: No New Focal Deficit Psy/Mental Status: Alert, Normal Affect, Normal Mood - Patient Data Lab Results Last 24 hrs: Laboratory Results - last 24 hr 08/17/20 Range/Units 06:10 WBC 7.96 (4.0-11.0) K/uL RBC 3.66 L (4.30-5.90) M/uL Hgb 9.3 L (12.0-16.0) g/dL Hct 28.8 L (36.0-46.0) % MCV 78.7 L (80.0-98.0) fL MCH 25.4 L (27.0-32.0) pg MCHC 32.3 (31.0-37.0) g/dL RDW Std Deviation 35.4 (28.0-62.0) fl RDW Coeff of Guera 12 (11.0-15.0) % Plt Count 168 (150-400) K/uL MPV 12.70 H (7.40-12.00) fL Neut % (Auto) 79.6 (48.0-80.0) % Lymph % (Auto) 10.8 L (16.0-40.0) % [place] % (Auto) 8.9 (0.0-15.0) % Eos % (Auto) 0.6 (0.0-7.0) % Baso % (Auto) 0.1 (0.0-1.5) % Neut # (Auto) 6.3 H (1.4-5.7) K/uL Lymph # (Auto) 0.9 (0.6-2.4) K/uL [place] # (Auto) 0.7 (0.0-0.8) K/uL Eos # (Auto) 0.1 (0.0-0.7) K/uL Baso # (Auto) 0.0 (0.0-0.1) K/uL Nucleated RBC % 0.0 /100WBC Nucleated RBCs # 0 K/uL Result Diagrams: 08/17/20 06:10 08/15/20 05:25 Sepsis Event Note - Evaluation Sepsis Screening Result: No Definite Risk - Problem List Review Problem List Initiated/Reviewed/Updated: Yes - My Orders Last 24 Hours: My Active Orders 08/17/20 08:00 OB Follow Up Ea Addl Gest [US] Routine - Assessment Assessment:: The patient stop having contraction and cramping she stop bleeding OB ultrasound today is shows that the amniotic fluid index is to same and there is stool funneling of the cervical canal with amniotic fluid in it but did not progress beyond what start ultrasound from yesterday by ultrasound the patient is still have an intact amniotic sac it is most likely that AmniSure positive yesterday is due to contamination with blood. I am planning to repeat her ultrasound jeronimo rrow for amniotic fluid index and to make sure definitely that the patient does not have any abruption I am also doing a vaginal probe more to measure her cervical length. My plan if there is no change in her status then I am planning to do a Chin cerclage on the patient tomorrow at noon. I discussed the finding today and my plan with the patient and her and explained to them that in detail what the Chin cerclage and there is the possibility of rupturing her membranes during the process. Also explained to the patient and her is if she'll go home she is will be on complete bedrest. I also explained to them that we will are going to assess the on weekly basis we can by 4-5 weeks with a cerclage disease wouldn't improve the odds for the survival for the fetus. The patient and her agreed to this plan. 08/16/20 Today the patient is afebrile her white count was normal and her ultrasound there is no change in amniotic fluid vaginal probe ultrasound shows her cervix is between 1.5-1.8 cm with bulging bag of water and the cervix. Explained these finding to the patient of her on I'm planning to move ahead today with the cerclage fully this is would be achieved without rupturing of the membrane and without any problem. Father explained to the patient the strong possibility of rupturing the membrane because is the membrane is bulging through the cervical os. 08/17/20 this morning the patient is afebrile she have no contraction is no vaginal bleeding. Ultrasound shows no decrease in the amniotic fluid the fetus is moving and cries is holding. Implanting to send her home today on bedrest with yudi start her on Procardia XL 30 mg by mouth daily and Ambien start her on by mouth antibiotic as a prophylaxis to be followed in the office in one week. - Plan Plan:: Admit into inpatient observation for albaro vaginal bleeding at 22+1 weeks gestation (JOE(LMP) 12/17/2020) that presents via ambulance today that started today at 0800. AB neg, Ab screen neg, RI, GBS positive bacteriuria. TAUS completed at bedside today: 22+3 weeks gestation, breech, FHR 143, placenta posterior, no previa, unremarkable and no abruption or abnormalities noted at this time. NEHA 12.71, SDP 5.4. Internal cervical os appears open with fluid in cervical canal, CL not collected, footling breech appears to be present into cervical canal via TAUS. EFW 469 grams, 31st%ile. Speculum exam and gentle SVE completed by Dr. Holt at bedside: cervix appears 1-2 cm in dilation, thick, no membranes protruding from external os, parts not palpated; no albaro bleeding or LOF noted at that time. Collect Amnisure now, results pending. RhoGam administered 05/27/2020 for vaginal bleeding in early ; plan for repeat RhoGam administration in am with lab collection at that time. CHTN well managed with PO medications, plan to continue labetolol 400 mg BID. GBS pos bacteriuria, : plan for antibiotic prophylaxis today per Dr. Holt. Plan to reassess CBC, CMP, RhIg with subsequent RhoGam injection in am. Plan to repeat TAUS in am with TVUS for cervical length in am given patient continue to have ceased vaginal bleeding and no LOF. Will observe overnight and reassess situation tomorrow given patient remains stable. Bedrest with bed-florentino voiding, do not ambulate. FHTs q 12 hrs or as indicated. Continuous TOCO. See new orders. Dr. Holt agreeable with POC.
--- NOTE | 2020-08-17 09:23 | PCM.OPNOTE ---
- General Post-Op/Procedure Note Date of Surgery/Procedure: 08/17/20 Operative Procedure(s): Chin cerclage Pre Op Diagnosis: Regnancy 22+3 weeks possible incompetent cervix Post-Op Diagnosis: Same Anesthesia Technique: Spinal Primary Surgeon: Hudson Holt EBL in mLs: 50 Complications: None Condition: Good Free Text/Narrative:: Intake & Output 08/16/20 08/17/20 08/17/20 22:59 06:59 14:59 Output Total 1200 Balance -1200
[2020-08-17] MEDS ORDERED: Labetalol 100 MG Tab PO SCH (09:30)
[2020-08-17] MEDS: Prenatal Multivitamin with Calcium/Folic Acid/Iron Tab PO SCH (09:34)
--- NOTE | 2020-08-17 09:43 | US ---
INDICATION: History of previous vaginal bleeding ; cerclage;Assessment length of the cervix as well as position of the placenta and amniotic fluid index. COMPARISON: Ob ultrasound 08/16/2020. TECHNIQUE: Ob ultrasound. FINDINGS: Single viable intrauterine gestation. cardiac activity is measured at 153 beats per minute. The amniotic fluid index is 13 cm and stable. Cervix is closed measuring 1.4 cm in its length. Placenta is posterior without any previa or abruption. Breech presentation. Impression: Single viable intrauterine gestation with breech presentation. 1. Amniotic fluid index is measuring 13 cm. 2. Cervix is closed and measuring 1.4 cm. 3. Placenta is posterior without any previa or abruption. Dictated by John Em MD @ Aug 17 2020 9:32AM Signed by Dr. John Em @ Aug 17 2020 9:41AM
--- NOTE | 2020-08-17 10:55 | PCM.DCSUM1 ---
Discharge Summary - Hospital Course Diagnosis: Stroke: No - Discharge Data Discharge Date: 08/17/20 Discharge Disposition: Home, Self-Care 01 Condition: Good - Referral to Home Health Primary Care Physician: PCP None - Patient Summary/Data Operative Procedure(s) Performed: Chin cerclage - Patient Instructions Diet: Usual Diet as Tolerated Activity: Bedrest, Bedrest, May Use Bathroom Driving: Do Not Drive Showering/Bathing: May Shower Notify Provider of: Fever, Increased Pain, Nausea and/or Vomiting - Discharge Plan Home Medications: Home Meds Aspirin [Izaiah Chewable] 81 mg PO DAILY 08/14/20 [History] Labetalol [Normodyne] 400 mg PO BID 08/14/20 [History] Vit #76/Iron,Carb/Fa [Pnv 29-1 Tablet] 1 each PO DAILY 08/14/20 [History] Patient Handouts: Second Trimester of , [id number], Cervical Cerclage, Care After Referrals: Hudson Holt MD [Physician] - 08/24/20 10:30 am - Discharge Summary/Plan Comment DC Time >30 min.: Yes - General Info Date of Service: 08/17/20 Functional Status: Reports: Pain Controlled - Review of Systems General: Reports: No Symptoms HEENT: Reports: No Symptoms Pulmonary: Reports: No Symptoms Cardiovascular: Reports: No Symptoms Gastrointestinal: Reports: No Symptoms Genitourinary: Reports: No Symptoms Musculoskeletal: Reports: No Symptoms Skin: Reports: No Symptoms Neurological: Reports: No Symptoms Psychiatric: Reports: No Symptoms - Patient Data Vitals - Most Recent: Last Vital Signs Temp Pulse 92 08/17/20 09:33 Resp BP 132/80 08/17/20 09:33 Pulse Ox Weight - Most Recent: 86.183 kg I&O - Last 24 hours: Intake & Output 08/16/20 08/17/20 08/17/20 22:59 06:59 14:59 Output Total 1200 Balance -1200 Lab Results - Last 24 hrs: Laboratory Results - last 24 hr 08/17/20 Range/Units 06:10 WBC 7.96 (4.0-11.0) K/uL RBC 3.66 L (4.30-5.90) M/uL Hgb 9.3 L (12.0-16.0) g/dL Hct 28.8 L (36.0-46.0) % MCV 78.7 L (80.0-98.0) fL MCH 25.4 L (27.0-32.0) pg MCHC 32.3 (31.0-37.0) g/dL RDW Std Deviation 35.4 (28.0-62.0) fl RDW Coeff of Guera 12 (11.0-15.0) % Plt Count 168 (150-400) K/uL MPV 12.70 H (7.40-12.00) fL Neut % (Auto) 79.6 (48.0-80.0) % Lymph % (Auto) 10.8 L (16.0-40.0) % [place] % (Auto) 8.9 (0.0-15.0) % Eos % (Auto) 0.6 (0.0-7.0) % Baso % (Auto) 0.1 (0.0-1.5) % Neut # (Auto) 6.3 H (1.4-5.7) K/uL Lymph # (Auto) 0.9 (0.6-2.4) K/uL [place] # (Auto) 0.7 (0.0-0.8) K/uL Eos # (Auto) 0.1 (0.0-0.7) K/uL Baso # (Auto) 0.0 (0.0-0.1) K/uL Nucleated RBC % 0.0 /100WBC Nucleated RBCs # 0 K/uL Med Orders - Current: Current Medications Lactated Ringer's (Ringers, Lactated) 1,000 mls @ 150 mls/hr IV ASDIRECTED [facility] Last Admin: 08/16/20 11:41 Dose: 999 mls/hr Documented by: Labetalol HCl (Labetalol 100 Mg Tab) 400 mg PO BID [facility] Last Admin: 08/17/20 09:33 Dose: 400 mg Documented by: Prenat Multivit/Reliability Engineer/Iron/Folic Ac ( Multivitamin With Calcium/Folic Acid/Iron Tab) 1 each PO DAILY [facility] Last Admin: 08/17/20 09:34 Dose: 1 each Documented by: Discontinued Medications Ampicillin Sodium (Ampicillin 1 Gm Vial) Confirm Administered Dose 1 gm .ROUTE .STK-MED ONE Stop: 08/16/20 04:33 Ampicillin Sodium (Ampicillin 1 Gm Vial) Confirm Administered Dose 1 gm .ROUTE .ST-MED ONE Stop: 08/16/20 08:02 Last Admin: 08/16/20 08:24 Dose: 1 gm Documented by: Ampicillin Sodium (Ampicillin 1 Gm Vial) Confirm Administered Dose 1 gm .ROUTE .STK-MED ONE Stop: 08/16/20 11:20 Ampicillin Sodium (Ampicillin 1 Gm Vial) Confirm Administered Dose 1 gm .ROUTE .[facility]-MED ONE Stop: 08/16/20 16:03 Last Admin: 08/16/20 16:15 Dose: 1 gm Documented by: Ampicillin Sodium (Ampicillin 1 Gm Vial) Confirm Administered Dose 1 gm .ROUTE .[facility]-MED ONE Stop: 08/16/20 20:05 Last Admin: 08/16/20 20:18 Dose: 1 gm Documented by: Ampicillin Sodium (Ampicillin 1 Gm Vial) Confirm Administered Dose 1 gm .ROUTE .[facility]-MED ONE Stop: 08/17/20 00:09 Ampicillin Sodium (Ampicillin 1 Gm Vial) Confirm Administered Dose 1 gm .ROUTE .[facility]-MED ONE Stop: 08/17/20 04:16 Chloroprocaine HCl (Chloroprocaine 10 Mg/Ml 5 Ml Amp) Confirm Administered Dose 5 ml .ROUTE .[facility]-MED ONE Stop: 08/16/20 09:41 Ampicillin Sodium 2 gm/ Sodium (Chloride) 100 mls @ 200 mls/hr IV ONETIME ONE Stop: 08/14/20 12:18 Last Admin: 08/14/20 12:38 Dose: 200 mls/hr Documented by: Ampicillin Sodium 1 gm/ Sodium (Chloride) 50 mls @ 100 mls/hr IV Q4H [facility] Last Admin: 08/17/20 04:22 Dose: 100 mls/hr Documented by: Sodium Chloride (Normal Saline) Confirm Administered Dose 100 mls @ as directed .ROUTE .[facility]-MED ONE Stop: 08/14/20 12:30 Sodium Chloride (Normal Saline) Confirm Administered Dose 50 mls @ as directed .ROUTE .[facility]-MED ONE Stop: 08/16/20 08:04 Last Admin: 08/16/20 08:25 Dose: 100 mls/hr Documented by: Sodium Chloride (Normal Saline) Confirm Administered Dose 50 mls @ as directed .ROUTE .[facility]-MED ONE Stop: 08/16/20 11:20 Sodium Chloride (Normal Saline) Confirm Administered Dose 50 mls @ as directed .ROUTE .[facility]-MED ONE Stop: 08/16/20 16:04 Last Admin: 08/16/20 16:15 Dose: 100 mls/hr Documented by: Sodium Chloride (Normal Saline) Confirm Administered Dose 100 mls @ as directed .ROUTE .ST[facility]-MED ONE Stop: 08/16/20 20:06 Sodium Chloride (Normal Saline) Confirm Administered Dose 50 mls @ as directed .ROUTE .STK-MED ONE Stop: 08/17/20 00:10 Sodium Chloride (Normal Saline) Confirm Administered Dose 50 mls @ as directed .ROUTE .STK-MED ONE Stop: 08/17/20 04:16 Labetalol HCl (Labetalol 100 Mg Tab) 400 mg PO BID [facility] Last Admin: 08/15/20 21:00 Dose: 400 mg Documented by: Labetalol HCl (Labetalol 100 Mg Tab) Confirm Administered Dose 400 mg .ROUTE .STK-MED ONE Stop: 08/16/20 09:09 Last Admin: 08/16/20 09:11 Dose: 400 mg Documented by: Labetalol HCl (Labetalol 100 Mg Tab) Confirm Administered Dose 400 mg .ROUTE .STK-MED ONE Stop: 08/16/20 20:06 Last Admin: 08/16/20 20:15 Dose: 400 mg Documented by: - Exam General: Reports: Alert, Oriented HEENT: Reports: Pupils Equal, Pupils Reactive, EOMI, Mucous Membr. Moist/[place] Neck: Reports: Supple Lungs: Reports: Clear to Auscultation, Normal Respiratory Effort Cardiovascular: Reports: Regular Rate, Regular Rhythm GI/Abdominal Exam: Normal Bowel Sounds, Soft, Non-Tender, No Organomegaly, No Distention, No Abnormal Bruit, No Mass, Pelvis Stable (Female) Exam: Normal External Exam, Normal Speculum Exam, Normal Bimanual Exam Rectal (Female) Exam: Normal Exam, Normal Rectal Tone Back Exam: Reports: Normal Inspection, Full Range of Motion Extremities: Normal Inspection, Normal Range of Motion, Non-Tender, No Pedal Edema, Normal Capillary Refill Skin: Reports: Warm, Dry, Intact Wound/Incisions: Reports: Healing Well Neurological: Reports: No New Focal Deficit Psy/Mental Status: Reports: Alert, Normal Affect, Normal Mood
--- NOTE | 2020-08-17 12:59 | PCM48HPAN ---
Post Anesthesia Note - EVALUATION WITHIN 48HRS OF ANESTHETIC Vital Signs in Normal Range: Yes Patient Participated in Evaluation: Yes Respiratory Function Stable: Yes Airway Patent: Yes Cardiovascular Function Stable: Yes Hydration Status Stable: Yes Pain Control Satisfactory: Yes Nausea and Vomiting Control Satisfactory: Yes Mental Status Recovered: Yes Vital Signs: Last Vital Signs Temp Pulse 92 08/17/20 09:33 Resp BP 132/80 08/17/20 09:33 Pulse Ox
--- NOTE | 2020-08-18 09:04 | OR ---
SURGEON: Hudson Holt MD DATE OF PROCEDURE: 08/17/2020 PREOPERATIVE DIAGNOSES: 1. Incompetent cervix. 2. Gestational age of 22+ 3. POSTOPERATIVE DIAGNOSES: 1. Incompetent cervix. 2. Gestational age of 22+ 3. OPERATION PERFORMED: Chin cerclage. [employer] PLANT SUPERVISOR: DINORAH john. ANESTHESIA: Spinal. ESTIMATED BLOOD LOSS: 50 mL. COMPLICATIONS: None. INDICATIONS FOR SURGERY: This patient is 22+ 4. She has presented with vaginal bleeding and the patient is found to have an incompetent cervix. Her cervix is shortened to 1.5 cm, and it is open and there is funneling of the amniotic fluid through the cervical canal. There was question about possible rupture of the membrane, but the AmniSure was contaminated with blood, so it was false positive, and after repeating her ultrasound the next day and ascertaining that she is not ruptured, we decided to do the Chin cerclage. PROCEDURE IN DETAIL: The patient was brought to the OR, properly identified, and after adequate level of anesthesia, the patient was prepped and draped in sterile fashion as usual. Straight catheter was used to empty the bladder. A weighted speculum was placed into the vagina and then taking 2 ring forceps applied to the anterior and posterior leaves of the cervix. A small lubricated Q-tip was put in the cervix to push the bag back in the intrauterine cavity, and then Chin cerclage using Mersilene band done in the usual manner around the cervix and it was tied posteriorly with due amount of tension to prevent further dilatation of the cervix. The patient tolerated the procedure well, went to recovery room in stable general condition. EDY / ANAYELI /[id number]
== END 2020-08-17 12:10 | disposition home or self-care (01) ==
LOC: MW.OBCHECK 08:58 → MW.OB 08:59 → MW.OBCHECK 08-16 01:59
PROVIDERS: ADMIT Obstetrics & Gynecology; ATTEND Obstetrics & Gynecology
DX: O46.92 Antepartum hemorrhage, unspecified, second trimester (principal); O34.32 Maternal care for cervical incompetence, second trimester; O26.892 Other specified pregnancy related conditions, second trimester; O10.912 Unspecified pre-existing hypertension complicating pregnancy, second trimester; R82.71 Bacteriuria; Z3A.22 22 weeks gestation of pregnancy; Z01.812 Encounter for preprocedural laboratory examination; Z20.822 Contact with and (suspected) exposure to COVID-19
CPT/HCPCS: 36415; 59320; 76816; 76817; 80053; 84112; 85025; 85027; 85460; 86850; 86900; 86901; 86920; 86921; 86922; 87635; 96374; 96376; A9270; G0378; J0290; J2400; J2792; J7120; 76815-26; U0002

== ENCOUNTER 2020-09-22 10:41 | Observation (INO) | payer BC ==
[2020-09-22] MEDS ORDERED: Ampicillin 2 GM in Sodium Chloride 0.9% 100 ML IV ONE (11:45)
--- NOTE | 2020-09-22 11:55 | PCM.LDHP ---
L&D History of Present Illness - General Date of Service: 09/22/20 Admit Problem/Dx: Patient Status Order with Admit Dx/Problem 09/22/20 10:54 Patient Status [ADT] Routine Admission Diagnosis/Problem Admission Diagnosis/Problem 09/22/20 11:47 presenting to L&D from the clinic at 27 5/7 weeks (JOE: 12/17/20 by LMP and early ultrasound) following positive amnisure. Patient reports that about 2300 last evening (09/21/20), she started leaking a thin, yellowish liquid. Denies any vaginal bleeding or uterine contractions. Denies vaginal itching or foul odor. Reports baby has been very active, but movements have been stronger and felt more intensely. She received her first dose (12 mg IM) of betamethasone in the clinic this AM. has been complicated by incompetent cervix. Chin cerclage placed on 08/17/[address] Holt at 22 3/7 weeks. AB-, Rubella immune, GBS bacteriuria. Source of Information: Patient History Limitations: Reports: No Limitations - Related Data Allergies/Adverse Reactions: Allergies Allergy/AdvReac Type Severity Reaction Status Date / Time No Known Allergies Allergy Verified 08/14/20 12:00 Home Medications: Home Meds Aspirin [Izaiah Chewable] 81 mg PO DAILY 08/14/20 [History] Labetalol [Normodyne] 400 mg PO BID 08/14/20 [History] Vit #76/Iron,Carb/Fa [Pnv 29-1 Tablet] 1 each PO DAILY 08/14/20 [History] Past Medical History - Past Health History Medical/Surgical History: Denies Medical/Surgical History Cardiovascular History: Reports: Hypertension [employer] History: Reports: Spontaneous Hematologic History: Reports: Other (See Below) - Past Surgical History Cardiovascular Surgical History: Reports: None Respiratory Surgical History: Reports: None Social & Family History - Family History Family Medical History: No Pertinent Family History Cardiac: Reports: Hypertension - Caffeine Use Caffeine Use: Reports: None - Sexual History Sexual History: Reports: None H&P Review of Systems - Review of Systems: Review Of Systems: See Below General: Reports: No Symptoms HEENT: Reports: No Symptoms Pulmonary: Reports: No Symptoms Cardiovascular: Reports: No Symptoms Gastrointestinal: Reports: No Symptoms Genitourinary: Reports: Discharge Musculoskeletal: Reports: No Symptoms Skin: Reports: No Symptoms Psychiatric: Reports: No Symptoms Neurological: Reports: No Symptoms Hematologic/Lymphatic: Reports: No Symptoms Immunologic: Reports: No Symptoms L&D Exam - Exam Exam: See Below - Vital Signs Weight: 186 lb - OB Specific Fundal Height In cm: 27 Movement: Active Heart Tones: Present Heart Rate (FHR) Variability: Moderate (6-25 bmp) - Exam General: Alert, Oriented, Cooperative Lungs: Normal Respiratory Effort Cardiovascular: Regular Rate, Regular Rhythm GI/Abdominal Exam: Soft, Non-Tender Rectal Exam: Deferred Genitourinary: Deferred Back Exam: Full Range of Motion Extremities: Normal Inspection, Normal Range of Motion, Non-Tender, Normal Capillary Refill Skin: Warm, Dry, Intact Neurological: Strength Equal Bilateral, Normal Gait, Normal Speech, Normal Tone, Sensation Intact Psychiatric: Alert, Normal Affect, Normal Mood - Problem List (1) 27 weeks gestation of SNOMED Code(s): 42077688 ICD Code: Z3A.27 - 27 WEEKS GESTATION OF Status: Acute Priority: High Current Visit: Yes (2) Cervical cerclage suture present SNOMED Code(s): 24059042 ICD Code: O34.30 - MATERNAL CARE FOR CERVICAL INCOMPETENCE, UNSP TRIMESTER Status: Acute Priority: High Current Visit: Yes Qualifiers: Trimester: third trimester Qualified Code(s): O34.33 - Maternal care for cervical incompetence, third trimester (3) Amniotic fluid leaking SNOMED Code(s): 888840824 ICD Code: O42.90 - MARÍA ROM, 7TH0 BETW RUPT & ONST LABR, UNSP WEEKS OF GEST Status: Acute Priority: High Current Visit: Yes (4) Chronic hypertension affecting SNOMED Code(s): 47882165 ICD Code: O10.919 - UNSP PRE-EXISTING HTN COMP , UNSP TRIMESTER Status: Acute Priority: High Current Visit: Yes (5) GBS bacteriuria SNOMED Code(s): 67884126 ICD Code: R82.71 - BACTERIURIA Status: Acute Priority: High Current Visit: No (6) Rh negative status during SNOMED Code(s): 895697101 ICD Code: O26.899 - OTH RELATED CONDITIONS, UNSPECIFIED TRIMESTER; Z67.91 - UNSPECIFIED BLOOD TYPE, RH NEGATIVE Status: Acute Priority: High Current Visit: Yes Qualifiers: Trimester: third trimester Qualified Code(s): O26.893 - Other specified related conditions, third trimester; Z67.91 - Unspecified blood type, Rh negative Problem List Initiated/Reviewed/Updated: Yes Orders Last 24hrs: Active Orders 24 hr Category Date Time Status Patient Status [ADT] Routine ADT 09/22/20 10:54 Active Non Stress Test [RC] PER UNIT ROUTINE Care 09/22/20 10:54 Active Up ad Alissa [RC] ASDIRECTED Care 09/22/20 10:54 Active Vaginal Exam [RC] Click to Edit Care 09/22/20 10:54 Active Vital Signs [RC] PER UNIT ROUTINE Care 09/22/20 10:54 Active Regular Diet [DIET] Diet 09/22/20 Lunch Active OB Ltd 1 or More Fetus [US] Urgent Exams 09/22/20 10:54 Taken Ampicillin 1 gm Med 09/22/20 12:00 Ordered Sodium Chloride 0.9% [Normal Saline] 50 ml IV Q6H Ampicillin 2 gm Med 09/22/20 11:45 Ordered Sodium Chloride 0.9% [Normal Saline] 100 ml IV ONETIME Resuscitation Status Routine Resus Stat 09/22/20 10:54 Ordered Medication Orders Ampicillin Sodium 2 gm/ Sodium (Chloride) 100 mls @ 200 mls/hr IV ONETIME ONE Stop: 09/22/20 12:14 Ampicillin Sodium 1 gm/ Sodium (Chloride) 50 mls @ 100 mls/hr IV Q6H [facility] Assessment/Plan Comment:: Admit A: presenting to L&D from the clinic at 27 5/7 weeks (JOE: 12/17/20 by LMP and early ultrasound) following positive amnisure. Patient reports that about 2300 last evening (09/21/20), she started leaking a thin, yellowish liquid. Denies any vaginal bleeding or uterine contractions. Denies vaginal itching or foul odor. Reports baby has been very active, but movements have been stronger and felt more intensely. She received her first dose (12 mg IM) of betamethasone in the clinic this AM. has been complicated by incompetent cervix. Chin cerclage placed on 08/17/[address] Hotl at 22 3/7 weeks. AB-, Rubella immune, GBS bacteriuria. P: Per Dr. Holt, overnight observation with repeat ultrasound, amnisure, and CBC in the AM. Continue bedrest. Start IV antibiotic (ampicillin). Second dose of betamethasone to be given tomorrow (09/23). If patient begins mary jo, plan for transfer to [facility].
--- NOTE | 2020-09-22 12:14 | US ---
INDICATION: Follow-up in bulging of membrane status post cerclage, history of fluid leakage TECHNIQUE: Ultrasound OB pelvis transabdominal. Real-time eng-scale imaging of the fetus was performed as well as color Doppler and spectral Doppler analysis of the umbilical artery. COMPARISON: Ob ultrasound August 17, 2020 FINDINGS: Sonographic imaging demonstrates a single living intrauterine gestation. Fetus demonstrates a regular cardiac rate of 143 beats per minute. Fetus has a cephalic orientation. The placenta lies posterior without evidence of placenta previa. Amniotic fluid volume appears normal. Previously-seen bulging of membranes within the endocervical canal is not visualized on today`s exam due to lie and body habitus. The following biometric measurements were obtained: Biparietal diameter: 6.7 centimeters, 26 weeks 4 days. Head circumference: 24.3 centimeters, 26 weeks 3 days. Abdominal circumference: 21.1 centimeters, 25 weeks 5 days. Femur length: 4.8 centimeters, 26 weeks 0 days. The composite ultrasound gestational age is calculated at 26 weeks 2 days with an estimated sonographic due date of December 27, 2020. The weight is estimated at 861 grams, the less than 2nd percentile. There is adequate diastolic blood flow within the umbilical artery. IMPRESSION.: Previously seen bulging of membranes into the endocervical canal is not visualized due to patient body habitus and lie. Otherwise demonstration of single live intrauterine gestation measuring 26 weeks 2 days by ultrasound measurements[address] Dr. Holt was present during the exam. Dictated by Bravo Saucedo MD @ 09/22/2020 12:13:[address] Bravo Saucedo @ Sep 22 2020 12:13PM
[2020-09-22] MEDS ORDERED: Fluconazole 150 MG Tab PO ONE (12:42)
[2020-09-22] MEDS ORDERED: Water For Irrigation,Sterile 1,000 ML Container IRR PRN (17:42)
[2020-09-22] MEDS ORDERED: Sodium Chloride 0.9% 2.5 ML Syringe FLUSH PRN (17:42)
[2020-09-22] MEDS ORDERED: Sodium Chloride 0.9% 10 ML SDV IV PRN (17:42)
[2020-09-22] MEDS ORDERED: Sodium Chloride 0.9% 10 ML Syringe FLUSH PRN ×2 (17:42→17:45)
[2020-09-22] MEDS ORDERED: Calcium Gluconate 10% 1 GM/10 ML SDV IV PRN (17:45)
[2020-09-22] MEDS ORDERED: Magnesium Sulfate/Water 4 GM in Premix Bag 1 BAG IV ONE (17:45)
[2020-09-22] MEDS: Ampicillin 1 GM in Sodium Chloride 0.9% 50 ML IV SCH ×2 (18:45→23:44)
[2020-09-22] MEDS: Magnesium Sulfate/Water 20 GM/500 ML BAG IV SCH (19:20)
[2020-09-22] MEDS ORDERED: Lactated Ringers 1,000 ML IV SCH (20:00)
[2020-09-22] MEDS: metroNIDAZOLE 250 MG Tab PO SCH (21:23)
[2020-09-22] MEDS: Labetalol 100 MG Tab PO SCH (21:23)
[2020-09-23] MEDS: Magnesium Sulfate/Water 20 GM/500 ML BAG IV SCH (04:44)
[2020-09-23] MEDS: Ampicillin 1 GM in Sodium Chloride 0.9% 50 ML IV SCH (05:54)
[2020-09-23] MEDS: Labetalol 100 MG Tab PO SCH (09:46)
[2020-09-23] MEDS: metroNIDAZOLE 250 MG Tab PO SCH (09:49)
--- NOTE | 2020-09-23 09:57 | PCM.PNLD ---
Labor Progress Note - VS & Meds Vital Signs: Last Vital Signs Temp Pulse 99 09/23/20 09:46 Resp BP 125/73 09/23/20 09:46 Pulse Ox Active Medications: Current Medications Betamethasone Acet/Betameth SodPhos (Betamethasone Acetate/Betamethasone Sod Phosphate 30 Mg/5 Ml Mdv) 12 mg IM ONETIME ONE Stop: 09/23/20 10:01 Last Admin: 09/23/20 09:52 Dose: 12 mg Documented by: Calcium Gluconate (Calcium Gluconate 10% 1 Gm/10 Ml Sdv) 1 gm IV ASDIRECTED PRN PRN Reason: respiratory distress Ampicillin Sodium 1 gm/ Sodium (Chloride) 50 mls @ 100 mls/hr IV Q6H [facility] Last Admin: 09/23/20 05:54 Dose: 100 mls/hr Documented by: Magnesium Sulfate (Magnesium Sulfate In Water 20 Gm/500 Ml) 20 gm in 500 mls @ 50 mls/hr IV ASDIRECTED [facility] Last Admin: 09/23/20 04:44 Dose: 2 gm/hr, 50 mls/hr Documented by: Lactated Ringer's (Ringers, Lactated) 1,000 mls @ 50 mls/hr IV ASDIRECTED [facility] Last Admin: 09/22/20 18:45 Dose: 50 mls/hr Documented by: Labetalol HCl (Labetalol 100 Mg Tab) 400 mg PO BID [facility] Last Admin: 09/23/20 09:46 Dose: 400 mg Documented by: Metronidazole (Metronidazole 250 Mg Tab) 500 mg PO Q12HR [facility] Last Admin: 09/23/20 09:49 Dose: 500 mg Documented by: Sodium Chloride (Sodium Chloride 0.9% 10 Ml Syringe) 10 ml FLUSH ASDIRECTED PRN PRN Reason: Keep Vein Open Sodium Chloride (Sodium Chloride 0.9% 2.5 Ml Syringe) 2.5 ml FLUSH ASDIRECTED PRN PRN Reason: Keep Vein Open Sodium Chloride (Sodium Chloride 0.9% 10 Ml Sdv) 10 ml IV ASDIRECTED PRN PRN Reason: IV Use Sodium Chloride (Sodium Chloride 0.9% 10 Ml Syringe) 10 ml FLUSH ASDIRECTED PRN PRN Reason: Keep Vein Open Sterile Water (Water For Irrigation,Sterile 1,000 Ml Container) 1,000 ml IRR ASDIRECTED PRN PRN Reason: delivery Discontinued Medications Fluconazole (Fluconazole 150 Mg Tab) 150 mg PO ONETIME ONE Stop: 09/22/20 12:43 Last Admin: 09/22/20 13:00 Dose: 150 mg Documented by: Ampicillin Sodium 2 gm/ Sodium (Chloride) 100 mls @ 200 mls/hr IV ONETIME ONE Stop: 09/22/20 12:14 Last Admin: 09/22/20 12:44 Dose: 200 mls/hr Documented by: Magnesium Sulfate 4 gm/ Premix 100 mls @ 300 mls/hr IV BOLUS ONE Stop: 09/22/20 18:04 Last Admin: 09/22/20 19:00 Dose: 300 mls/hr Documented by: - Uterine Contractions Uterine Monitoring Mode: External [place] Contraction Intensity: none Uterine Resting Tone: Soft - Monitoring Heart Rate (FHR) Variability: Moderate (6-25 bmp) - Labor Progress (Free Text) Labor Progress: This patient 27+6 with the spontaneous rupture of the membrane she status post cerclage performed on August 23, 2020 for the dilated cervix. Should have no contraction and heart rate essentially is normal at her rupture membrane is confirmed and ultrasound yesterday and today shows decreased amniotic fluid so it is further confirmed her spontaneous rupture of the membrane. She is afebrile she received her status post a steroid doses yesterday and she is going to receive her second steroid dose today doses today. There is mild elevation of her white count otherwise the patient have no sign of chorioamnionitis. Because of patient prematurity and a possible premature I am transferring to the patient to a tertiary center where she could speak taking care.
[2020-09-23] MEDS ORDERED: Betamethasone Acetate/Betamethasone Sod Phosphate 30 MG/5 ML MDV IM ONE (10:00)
--- NOTE | 2020-09-23 10:28 | US ---
INDICATION: Premature rupture of membranes, evaluate NEHA TECHNIQUE: Ultrasound OB pelvis transabdominal. Real-time eng-scale imaging of the fetus was performed as well as color Doppler and spectral Doppler analysis of the umbilical artery. COMPARISON: Ob ultrasound September 22, 2020 and ultrasound dated August 17, 2020 FINDINGS: Sonographic imaging demonstrates a single living intrauterine gestation. Fetus demonstrates a regular cardiac rate of 136 beats per minute. Fetus has a cephalic orientation. The placenta lies posterior without evidence of placenta previa. Amniotic fluid volume appears diminished measuring 4.7 centimeters. Detailed biometry was not obtained. IMPRESSION.: Single live intrauterine gestation with 136 beats per minute heart rate. Diminished NEHA measuring 4.7 centimeters is appreciated slightly improved from comparison yesterday previously measuring 3.2 centimeters. Previously seen bulging membranes on remote comparison exam are not appreciated on current exam due to lie and body habitus. Dictated by Bravo Saucedo MD @ 09/23/2020 10:26:[address] Bravo Saucedo @ Sep 23 2020 10:26AM
--- NOTE | 2020-09-25 11:51 | PCM.DCSUM1 ---
Discharge Summary - Hospital Course Diagnosis: Stroke: No - Discharge Data Discharge Date: 09/23/20 Discharge Disposition: DC/Tfer to Acute Hospital 02 Condition: Stable - Referral to Home Health Primary Care Physician: PCP None - Discharge Plan Home Medications: Home Meds Aspirin [Izaiah Chewable] 81 mg PO DAILY 08/14/20 [History] Labetalol [Normodyne] 400 mg PO BID 08/14/20 [History] Vit #76/Iron,Carb/Fa [Pnv 29-1 Tablet] 1 each PO DAILY 08/14/20 [History] - Discharge Summary/Plan Comment DC Time >30 min.: Yes - General Info Date of Service: 09/23/20 Functional Status: Reports: Pain Controlled - Review of Systems General: Reports: No Symptoms HEENT: Reports: No Symptoms Pulmonary: Reports: No Symptoms Cardiovascular: Reports: No Symptoms Gastrointestinal: Reports: No Symptoms Genitourinary: Reports: No Symptoms Musculoskeletal: Reports: No Symptoms Skin: Reports: No Symptoms Neurological: Reports: No Symptoms Psychiatric: Reports: No Symptoms - Patient Data Vitals - Most Recent: Last Vital Signs Temp Pulse 99 09/23/20 09:46 Resp BP 125/73 09/23/20 09:46 Pulse Ox Weight - Most Recent: 84.368 kg Med Orders - Current: Current Medications Discontinued Medications Betamethasone Acet/Betameth SodPhos (Betamethasone Acetate/Betamethasone Sod Phosphate 30 Mg/5 Ml Mdv) 12 mg IM ONETIME ONE Stop: 09/23/20 10:01 Last Admin: 09/23/20 09:52 Dose: 12 mg Documented by: Calcium Gluconate (Calcium Gluconate 10% 1 Gm/10 Ml Sdv) 1 gm IV ASDIRECTED PRN PRN Reason: respiratory distress Fluconazole (Fluconazole 150 Mg Tab) 150 mg PO ONETIME ONE Stop: 09/22/20 12:43 Last Admin: 09/22/20 13:00 Dose: 150 mg Documented by: Ampicillin Sodium 2 gm/ Sodium (Chloride) 100 mls @ 200 mls/hr IV ONETIME ONE Stop: 09/22/20 12:14 Last Admin: 09/22/20 12:44 Dose: 200 mls/hr Documented by: Ampicillin Sodium 1 gm/ Sodium (Chloride) 50 mls @ 100 mls/hr IV Q6H [facility] Last Admin: 09/23/20 05:54 Dose: 100 mls/hr Documented by: Magnesium Sulfate 4 gm/ Premix 100 mls @ 300 mls/hr IV BOLUS ONE Stop: 09/22/20 18:04 Last Admin: 09/22/20 19:00 Dose: 300 mls/hr Documented by: Magnesium Sulfate (Magnesium Sulfate In Water 20 Gm/500 Ml) 20 gm in 500 mls @ 50 mls/hr IV ASDIRECTED [facility] Last Admin: 09/23/20 04:44 Dose: 2 gm/hr, 50 mls/hr Documented by: Lactated Ringer's (Ringers, Lactated) 1,000 mls @ 50 mls/hr IV ASDIRECTED [facility] Last Admin: 09/22/20 18:45 Dose: 50 mls/hr Documented by: Labetalol HCl (Labetalol 100 Mg Tab) 400 mg PO BID [facility] Last Admin: 09/23/20 09:46 Dose: 400 mg Documented by: Metronidazole (Metronidazole 250 Mg Tab) 500 mg PO Q12HR [facility] Last Admin: 09/23/20 09:49 Dose: 500 mg Documented by: Sodium Chloride (Sodium Chloride 0.9% 10 Ml Syringe) 10 ml FLUSH ASDIRECTED PRN PRN Reason: Keep Vein Open Sodium Chloride (Sodium Chloride 0.9% 2.5 Ml Syringe) 2.5 ml FLUSH ASDIRECTED PRN PRN Reason: Keep Vein Open Sodium Chloride (Sodium Chloride 0.9% 10 Ml Sdv) 10 ml IV ASDIRECTED PRN PRN Reason: IV Use Sodium Chloride (Sodium Chloride 0.9% 10 Ml Syringe) 10 ml FLUSH ASDIRECTED PRN PRN Reason: Keep Vein Open Sterile Water (Water For Irrigation,Sterile 1,000 Ml Container) 1,000 ml IRR ASDIRECTED PRN PRN Reason: delivery - Exam General: Reports: Alert, Oriented HEENT: Reports: Pupils Equal, Pupils Reactive, EOMI, Mucous Membr. Moist/[place] Neck: Reports: Supple Lungs: Reports: Clear to Auscultation, Normal Respiratory Effort Cardiovascular: Reports: Regular Rate, Regular Rhythm GI/Abdominal Exam: Normal Bowel Sounds, Soft, Non-Tender, No Organomegaly, No Distention, No Abnormal Bruit, No Mass, Pelvis Stable (Female) Exam: Normal External Exam, Normal Speculum Exam, Normal Bimanual Exam Rectal (Female) Exam: Normal Exam, Normal Rectal Tone Back Exam: Reports: Normal Inspection, Full Range of Motion Extremities: Normal Inspection, Normal Range of Motion, Non-Tender, No Pedal Edema, Normal Capillary Refill Skin: Reports: Warm, Dry, Intact Wound/Incisions: Reports: Healing Well Neurological: Reports: No New Focal Deficit Psy/Mental Status: Reports: Alert, Normal Affect, Normal Mood
== END 2020-09-23 11:00 ==
LOC: MW.OBCHECK 10:41 → MW.OB 17:42
PROVIDERS: ADMIT Obstetrics & Gynecology; ATTEND Obstetrics & Gynecology
DX: O42.912 Preterm premature rupture of membranes, unspecified as to length of time between rupture and onset of labor, second trimester (principal); O34.32 Maternal care for cervical incompetence, second trimester; O10.912 Unspecified pre-existing hypertension complicating pregnancy, second trimester; R82.71 Bacteriuria; O26.892 Other specified pregnancy related conditions, second trimester; Z67.91 Unspecified blood type, Rh negative; Z3A.27 27 weeks gestation of pregnancy; Z79.899 Other long term (current) drug therapy; Z20.822 Contact with and (suspected) exposure to COVID-19
CPT/HCPCS: 36415; 76815; 83735; 85027; 86850; 86900; 86901; 87635; A9270; J0290; J0702; J2792; J3475; J7120; 36430; U0002